=== PATIENT | female | born 1985 | race Caucasian/White ===

== ENCOUNTER 2017-05-31 04:15 | Emergency (ER) | payer OTHER ==
--- NOTE | 2017-05-31 04:19 | EDPHY ---
H & P HPI/ROS: HPI CHIEF COMPLAINT: Left upper thigh pain. HISTORY OF PRESENT ILLNESS: This patient very pleasant 32-year-old female she is otherwise healthy no significant medical history she presents emergency room with left upper thigh pain. She states the pain is located deep in her left thigh. She reports that she has had intermittently for the past few nights and it wakes her from sleep. She describes achy pain. She denies any back pain denies pain radiating down her leg. This made located in her upper left thigh. Patient does report to me that [place]. She was on a 3 day very intense mountain bike trip where she spent a large amount of time biking. She is unclear if she injured her leg. She does not remember any trauma. She distally was on a 12 hr flight. She denies history of DVT or PE. Denies history of pleuritic pain or shortness of breath. Denies fever. She denies rectal pain or gluteus pain. Denies saddle anesthesia , denies midline back pain, denies fever, denies pain in her groin or inguinal area. Past Medical History: Denies significant medical history, except for multiple joint dislocations ?Miranda Danyudiths Past Surgical History: Denies significant surgical history Social History: Denies daily use drugs alcohol tobacco products Family History: Noncontributory ROS REVIEW OF SYSTEMS: A comprehensive 10 point review of systems is otherwise negative aside from elements mentioned in the history of present illness. Exam Constitutional appears well nontoxic, triage nursing summary reviewed, vital signs reviewed, awake/alert. Eyes normal conjunctivae and sclera, EOMI, PERRLA. HENT normal inspection, atraumatic, moist mucus membranes, no epistaxis, neck supple/ no meningismus, no raccoon eyes. Respiratory clear to auscultation bilaterally, normal breath sounds, no respiratory distress, no wheezing. Cardiovascular rate normal, regular rhythm, no murmur, no edema, distal pulses normal. Gastrointestinal soft, non-tender, no rebound, no guarding, normal bowel sounds, no distension, no pulsatile mass. Genitourinary no CVA tenderness. Musculoskeletal no midline vertebral tenderness, full range of motion, no calf swelling, no tenderness of extremities, no meningismus, good pulses, neurovascularly intact. Left lower extremity: Left lower extremity is neurovascularly intact good distal pulse. Good cap refill. Good left femoral pulse, full range of motion left leg. No obvious signs of trauma. No obvious signs of swelling. Compartments are soft. Distally neurovascular intact good distal pulse. Full range of motion Skin pink, warm, & dry, no rash, skin atraumatic. Neurologic awake, alert and oriented x 3, AAOx3, moves all 4 extremities equally, motor intact, sensory intact, CN II-XII intact, normal cerebellar, normal vision, normal speech. Psychiatric normal mood/affect. Heme/Lymph/Immune no lymphadenopathy. Differential Diagnosis: Includes but is not limited to in a particular order DVT, soft tissue injury, rhabdomyolysis, nerve compression Medical Decision Making: Plan for this patient x-ray left femur, ultrasound left lower extremity rule out DVT. Check CK level. Re-evaluate. She has declined pain medicine here in emergency room. Re-evaluation: Ultrasound of the left upper extremity for DVT evaluation called to me by Dr. Reji Mendoza. This is negative for DVT. X-ray of the left leg or left femur reviewed by myself. Negative for acute fracture or bony abnormality. CK checked unremarkable. Most likely this is musculoskeletal injury. Return precautions discussed with the patient. Additionally will give a prescription for Flexeril, ibuprofen and [place] for pain control. Recommend rest. And return emergency room for worsening symptoms. She understands Source: Patient - Medical/Surgical History Hx Asthma: No Hx Chronic Respiratory Disease: No Hx Diabetes: No Hx Cardiac Disease: No Hx Renal Disease: No Hx Cirrhosis: No Hx Alcoholism: No Hx HIV/AIDS: No Hx Splenectomy or Spleen Trauma: No Other PMH: PMH: DENIES. PSH: DENIES - Social History Smoking Status: Never smoked Constitutional: Initial Vital Signs Temperature (C) 36.6 C 05/31/17 04:15 Heart Rate 81 05/31/17 04:15 Respiratory Rate 16 05/31/17 04:15 Blood Pressure 144/92 H 05/31/17 04:15 O2 Sat (%) 96 05/31/17 04:15 O2 Delivery Mode Room Air Allergies/Adverse Reactions: Opioids - Morphine Analogues Allergy (Mild, Verified 05/31/17 04:33) Heparin Analogues Allergy (Verified 05/31/17 04:33) Home Medications: Medication Instructions Recorded NK [No Known Home Meds] 05/31/17 Medical Decision Making - Data Points Laboratory Results: 05/31/17 04:35 Creatine Kinase 122 IU/L IU/L (0-156) Departure - Departure Disposition: Home, Routine, Self-Care Clinical Impression: Muscle strain Condition: Good Instructions: Muscle Strain (ED), Leg Cramps (ED) Additional Instructions: 1. Stay well-hydrated drink lots of fluids. 2. Ibuprofen for mild pain. 3. [place] for severe pain. This medication can make her sleepy and drowsy do not drive while taking it. 4. Flexeril for muscle spasm.This medication can make her sleepy and drowsy do not drive while taking it. Referrals: NONE *PRIMARY CARE P,. [Primary Care Provider] - As per Instructions
[2017-05-31 04:33] VITALS: RESP 16; TEMP 97.9
[2017-05-31 05:24] VITALS: BP 144/91; PULSE 69; O2SAT 97
== END 2017-05-31 05:24 | disposition home or self-care (01) ==
DX: S76.312A Strain of muscle, fascia and tendon of the posterior muscle group at thigh level, left thigh, initial encounter (principal); X58.XXXA Exposure to other specified factors, initial encounter